=== PATIENT | female | born 1955 | race Caucasian/White ===

== ENCOUNTER → 2018-05-01 16:42 | Outpatient (REF) | payer OTHER, SELFPAY ==
[2018-05-01 16:53] LABS: BUN Creatinine Ratio 20.8 (6-22); Blood Urea Nitrogen 25 mg/dL (7-17); Carbon Dioxide 23 mmol/L (22-32); Chloride 99 mmol/L (98-107); Estimated Glomerular Filt Rate 45.5 mL/min (>60); Glucose 232 mg/dL (80-110); HEMOLYSIS < 15 (0-50); Potassium 4.8 mmol/L (3.4-5.1); Sodium 136 mmol/L (137-145)
[2018-05-01 17:00] LABS: B Type Natriuretic Peptide < 100.0 (<100)
== END ==
LOC: LAB 16:42
PROVIDERS: Family Provider Internal Medicine; Visit Provider Internal Medicine
DX: M62.81 Muscle weakness (generalized) (principal)
CPT/HCPCS: 80048; 83880